=== PATIENT | male | born 1970 ===

== ENCOUNTER 2025-04-10 08:01 | Day surgery (SDC) | payer BC ==
[~2025-04-10 08:01] MED LIST: Sodium Chloride 0.9% 10 ML Syringe FLUSH PRN
[2025-04-10] MEDS ORDERED: Propofol 200 MG/20 ML SDV ONE ×3 (08:07→10:41)
[2025-04-10] MEDS: Lactated Ringers 1,000 ML IV SCH (08:53)
[2025-04-10] MEDS ORDERED: Propofol 200 MG/20 ML SDV IV ONE (09:35)
== END 2025-04-10 10:38 | disposition home or self-care (01) ==
LOC: LL.SDS 08:01
PROVIDERS: ATTEND Surgery
DX: Z12.11 Encounter for screening for malignant neoplasm of colon (principal); D12.2 Benign neoplasm of ascending colon; K57.30 Diverticulosis of large intestine without perforation or abscess without bleeding
CPT/HCPCS: J2704; J7120